=== PATIENT | female | born 1985 | race Caucasian/White ===

== ENCOUNTER 2017-10-10 21:16 | Emergency (ER) | payer BC ==
[2017-10-10 22:19] VITALS: BMI 32.2
--- NOTE | 2017-10-10 23:15 | US ---
EXAM: US Biophysical Profile Without Non-Stress Testing CLINICAL HISTORY: 32 years old, female; Signs and symptoms; Other: Decrease move; ; Additional info: Decreased fm TECHNIQUE: Real-time ultrasound of the maternal pelvis for biophysical profile evaluation with image documentation. COMPARISON: No relevant prior studies available. FINDINGS: breathing movements: Present. Score 2/2. Gross body movements: Present. Score 2/2. tone: Present. Score 2/2. Qualitative amniotic fluid volume: Amniotic fluid index 14.2. Score 2/2. presentation is breech. Heart rate 144 beats per minute. IMPRESSION: Normal biophysical profile ultrasound. Score 8/8. Breech presentation.
[2017-10-11 03:33] VITALS: BP 113/62; PULSE 73
--- NOTE | 2017-10-11 18:10 | OBHP ---
Datetime: 10/10/2017 22:23 IP Adm Impression: , intrauterine IP Admit Plan: Observation/Evaluation Admit Comment, IP Provider: This is 32 y/o F, , IUP@ 27.4, comes to the OB ED c/o decreased FM s ernesto yesterday. Last movement 15 mins ago. Denies any CTX, BV, LOF ROS unremarkabal PNC: Dr. Crane PMH: Denies PSH: Gallbladder removed 7 yrs ago Allg: Benzoperoxide, retinol a, Meds: PPI, PNV OB: A/P: 32 y/o F, , IUP@ 27.4, comes to the OB ED c/o decreased FM since yesterday. - Observation - NST - BPP - Serial reevaluation Case discussed with Dr. Hill --- JPATEL, PGY-1 Addendum: I saw and examined patient. Patient presented complaining of decreased movement. While in th e ED, patient reports good movement. heart tracing with good variability. Physical profil e 8 out of 8. Patient discharged home with labor precautions. Both maternal well-being and fe bebe well-being reassuring at this time. Extremities - PN: Normal Abdomen - PN: Normal Back - PN: Normal Lungs - PN: Normal Heart - PN: Normal Thyroid - PN: Normal Neurologic - PN: Normal HEENT - PN: Normal General - PN: Normal FHR - Baseline A Provider: 130 EGA AdmitDate IP: 27.4 Vital Signs Provider: Reviewed; Within Normal Limits IP Chief Complaint: evaluation NICHD Variability Prov Fetus A: Moderate 6-25bpm FHR Category Provider Fetus A: Category I NICHD Decel Fetus A IP Provider: None
== END 2017-10-10 23:22 | disposition home or self-care (01) ==
LOC: H.EROB2 21:16
DX: O36.8120 Decreased fetal movements, second trimester, not applicable or unspecified (principal); Z3A.27 27 weeks gestation of pregnancy

== ENCOUNTER 2017-12-08 20:51 | Emergency (ER) | payer BC ==
[2017-12-08 21:32] VITALS: BMI 34.9
[2017-12-08] MEDS ORDERED: Betamethasone Soluspan 30 mg/5mL Inj Susp IM ONE (21:35)
[2017-12-09 05:31] VITALS: BP 127/77; PULSE 74; O2SAT 100
--- NOTE | 2017-12-09 06:51 | OBDCSUM ---
Datetime: 12/08/2017 22:27 Discharged to, Provider: Home Follow up at, Provider: dr garcia Disch Instr Activity: Normal activity Disch Instr Diet: Regular Discharge Instructions, Provider: Routine instructions given Discharge Time: 12/08/2017 22:25 Follow up in weeks, Provider: saturday12/11/17 as scheduled Disch Referrals: None Contraception discussed, Prov: Yes Disch Activity Restrictions: Nothing in vagina - [place], tampons, douche Discharge Diagnosis Prov Other: cholestasis of
--- NOTE | 2017-12-09 06:52 | OBHP ---
Datetime: 12/08/2017 21:37 IP Adm Impression: , intrauterine ; No Active Labor IP Admit Plan: Observation/Evaluation; Discharge home Admit Comment, IP Provider: 32 y/o F , IUP 36+ wks sent by primary OB doctor for celestone firs t shot. No complaints at this time, movements present. Denies any CTX, BV, LOF. PNC: Dr. Crane PMH: Denies PSH: Gallbladder removed 7 yrs ago Allg: Benzoy peroxide, retinol ac. Meds: PPI, PNV OB: O: VSS, see PE tab. A/P: 32 yo F IUP 36+ weeks, comes for first Celestone dose. - Observation - Betamethasone 12mg IM once - NST - advise return tomorrow for second dose. - PTL precautions. Case discussed with Dr Giuspepe Killian PGY [address] Chin: I have evaluated the patient independently and I agree with the above Pelvic Type - PN: Adequate Extremities - PN: Normal Abdomen - PN: Normal Back - PN: Normal Breast - PN: Not Done Lungs - PN: Normal Heart - PN: Normal Thyroid - PN: Normal Neurologic - PN: Normal HEENT - PN: Normal General - PN: Normal FHR - Baseline A Provider: 155 Membranes, Provider: Intact EGA AdmitDate IP: 36.0 Vital Signs Provider: Reviewed; Within Normal Limits IP Chief Complaint: Other NICHD Variability Prov Fetus A: Moderate 6-25bpm NICHD Accel Fetus A IP Provider: 15X15 FHR Category Provider Fetus A: Category I NICHD Decel Fetus A IP Provider: None Genitourinary Exam: Not Done DTRs - PN: Normal
== END 2017-12-08 22:30 | disposition home or self-care (01) ==
LOC: H.EROB2 20:51
DX: O26.613 Liver and biliary tract disorders in pregnancy, third trimester (principal); Z23 Encounter for immunization; Z3A.36 36 weeks gestation of pregnancy
CPT/HCPCS: 96372; 99281; J0702

== ENCOUNTER 2017-12-09 18:04 | Emergency (ER) | payer BC ==
[2017-12-08 21:32] VITALS: BMI 34.9
[2017-12-09] MEDS ORDERED: Betamethasone Soluspan 30 mg/5mL Inj Susp IM ONE (22:20)
--- NOTE | 2017-12-09 22:21 | OBDCSUM ---
Datetime: 12/09/2017 22:05 Discharged to, Provider: Home Follow up at, Provider: Disch Instr Activity: Normal activity Disch Instr Diet: Regular Discharge Diet restrict Prov: DRINK PLENTY OF WATER Discharge Time: 12/09/2017 22:06 Follow up in weeks, Provider: 02/10/2018 Disch Referrals: None Disch Activity Restrictions: No lifting Discharge Diagnosis Prov Other: Decreased movement/ steroid administration for ICP
[2017-12-10 05:40] VITALS: BP 121/86; PULSE 86; TEMP 98.5
--- NOTE | 2017-12-10 08:53 | US ---
PROCEDURE: Biophysical profile HISTORY: decreased movement COMPARISON: 10/10/2017. TECHNIQUE: Standard protocol for this study/examination. FINDINGS: FINDINGS: Biophysical profile score 8/8 Based on the followin. breathing movements: 2/2 2. Gross body movement: 2/2 3. tone: 2/2 4. Qualitative amniotic fluid index: 2/2 Calculated cardiac rate 143 beats per minute. Amniotic fluid index 15.6 cm. Cephalic presentation. Closed cervix 5.2 cm. IMPRESSION: Biophysical profile score 8/8. Concordant results (preliminary interpretation) provided by [facility]. Procedure Completed: 20:10 Preliminary ([facility]) Report: Dictated and Authenticated: 21:23 Final Interpretation: 08:51 December 10, 2017. She
== END 2017-12-09 22:10 | disposition home or self-care (01) ==
LOC: H.EROB2 18:04
DX: O26.613 Liver and biliary tract disorders in pregnancy, third trimester (principal); Z3A.36 36 weeks gestation of pregnancy; Z23 Encounter for immunization; O36.8130 Decreased fetal movements, third trimester, not applicable or unspecified
CPT/HCPCS: 76818; 99284; J0702

== ENCOUNTER 2017-12-15 11:18 | Inpatient (IN) | payer BC ==
[2017-12-15] MEDS ORDERED: Lactated Ringer's 1,000 ML IV SCH (20:45)
[2017-12-15 21:28] VITALS: TEMP 98.6
[2017-12-15 21:35] LABS: BASO # 0.2 K/uL (0.0-0.2); BASO % 1.3 % (0.0-2.0); EOS # 0.3 K/uL (0.0-0.7); EOS % 2.5 % (0.0-4.0); LYMPH # 1.7 K/uL (1.0-4.3); LYMPH % 12.8 % (20.0-40.0); MEAN CELL VOLUME 87.3 fl (81.0-99.0); MEAN CORPUSCULAR HEMOGLOBIN 29.7 pg (27.0-31.0); MEAN PLATELET VOLUME 8.7 fl (7.2-11.7); MONO # 0.6 K/uL (0.0-0.8); MONO % 4.1 % (0.0-10.0); NEUT # 10.8 K/uL (1.8-7.0); NEUT % 79.3 % (50.0-75.0); RBC 4.06 Mil/uL (3.80-5.20); WHITE BLOOD COUNT 13.6 K/uL (4.8-10.8)
--- NOTE | 2017-12-15 22:35 | OBADHP ---
Datetime: 12/15/2017 20:46 Admit Comment, IP Provider: This is 32 yo F, , IUP@ 37.0 weeks, comes for scheduled IOL. Denies any CTX, BV, LOF, good movements. ROS as per HPI PNC: Dr. Crane PMH: Denies PSH: Gallbladder removed 7 yrs ago Allg: Benzoperoxide, retinol a, Meds: PPI, PNV OB: A/P: 32 yo F, , IUP@ 37.0 wks admitted for scheduled IOL. Cholestasis of . - Admit to unit. - Initiate IOL protocol - Cervidil vag. - /maternal monitoring - Monitor labor progression. Case discussed with Dr Chin. --- YBecerra PGY-[address] Chin: I have evaluated the patient independently and I agree with the above. The patient was closed/long/thick on exam, FHR = 140 mod sylvester, +accels, no decel, TOCO = none. Cervidil wa s placed. Pt declined pain medication at this time. CEFM and TOCO. F/U as needed Pelvic Type - PN: Adequate Extremities - PN: Normal Abdomen - PN: Normal Lungs - PN: Normal Heart - PN: Normal Neurologic - PN: Normal HEENT - PN: Normal General - PN: Normal FHR - Baseline A Provider: 150 Vital Signs Provider: Reviewed; Within Normal Limits IP Chief Complaint: Scheduled induction of labor NICHD Variability Prov Fetus A: Moderate 6-25bpm NICHD Accel Fetus A IP Provider: 15X15 FHR Category Provider Fetus A: Category I NICHD Decel Fetus A IP Provider: None EGA AdmitDate IP: 37.0 IP Adm Impression: Term, intrauterine ; No Active Labor; Intact Membranes IP Admit Plan: Admit to unit; Initiate labor induction protocol Datetime: 12/09/2017 19:06 IP Chief Complaint Other: Steroid administration for ICP Back - PN: Normal Contraction Comments Provider: Irritability Datetime: 12/08/2017 21:37 Breast - PN: Not Done Thyroid - PN: Normal Membranes, Provider: Intact Genitourinary Exam: Not Done DTRs - PN: Normal
[2017-12-16] MEDS: Lactated Ringer's 1,000 ML IV SCH (08:49)
--- NOTE | 2017-12-16 11:11 | OBPN ---
Datetime: 12/16/2017 11:07 IP Progress Impression: Normal progression of labor IP Informed Consent Obtain: Vaginal Delivery IP Procedures: Sterile Vag Exam IP Progress Plan: Continue present management FHR - Baseline A Provider: 155 IP Progress Note Comment: Pt comfortable overnight. VE=closed/50/-3, cervidil removed TOCO = Irritability A/P 1. Patient evaluated, cervidil removed, Pt closed. COntinue Misoprostol for induction 2. CEFM and TOCO 3. Nexium for acid reflux and continue Zoloft QHS 4. Re-evaluate as needed. Pt declined pain medication at this time Vital Signs Provider: Reviewed; Within Normal Limits NICHD Accel Fetus A IP Provider: 15X15 NICHD Variability Prov Fetus A: Moderate 6-25bpm Dilatation, Provider: closed Effacement, Provider: 50 Station, Provider: -3 Datetime: 12/15/2017 20:46 FHR Category Provider Fetus A: Category I NICHD Decel Fetus A IP Provider: None Datetime: 12/09/2017 19:06 Contraction Comments Provider: Irritability Datetime: 12/08/2017 21:37 Membranes, Provider: Intact
--- NOTE | 2017-12-16 22:14 | OBPN ---
Datetime: 12/16/2017 22:11 IP Progress Impression: Reassuring heart rate IP Procedures: Sterile Vag Exam IP Progress Plan: Continue present management; Induction Contraction Comments Provider: occasional FHR - Baseline A Provider: 130s-140s IP Progress Note Comment: FHT category I. Plan to continue cervical ripening and IOL. Discussed pl an with patient and all patient questions answered. NICHD Accel Fetus A IP Provider: 15X15 FHR Category Provider Fetus A: Category I NICHD Variability Prov Fetus A: Moderate 6-25bpm Dilatation, Provider: 1 Effacement, Provider: 50 Station, Provider: -3 NICHD Decel Fetus A IP Provider: None
[2017-12-17] MEDS ORDERED: Nalbuphine 20 mg/ml Inj (1 ml) IVP PRN (02:15)
[2017-12-17] MEDS ORDERED: Pantoprazole 40 mg EC Tab PO SCH (09:00)
--- NOTE | 2017-12-17 09:05 | OBPN ---
Datetime: 12/17/2017 09:02 IP Progress Impression: Reassuring heart rate IP Procedures: Sterile Vag Exam IP Progress Plan: Continue present management; Augmentation Membranes, Provider: Intact Contraction Comments Provider: q8-9min FHR - Baseline A Provider: 140s-150s IP Progress Note Comment: Category I tracing. Plan to start pitocin augmentation. Discussed plan w ith patient and all patient questions answered. Vital Signs Provider: Reviewed; Within Normal Limits NICHD Accel Fetus A IP Provider: 15X15 FHR Category Provider Fetus A: Category I NICHD Variability Prov Fetus A: Moderate 6-25bpm Dilatation, Provider: 3-4 Effacement, Provider: 100 Station, Provider: -1 NICHD Decel Fetus A IP Provider: None
[2017-12-17] MEDS ORDERED: Oxytocin 30 units/LR 500ML 30 U/500 ML BAG IV ONE (09:07)
--- NOTE | 2017-12-17 11:23 | OBPN ---
Datetime: 12/17/2017 11:18 IP Progress Impression: Normal progression of labor; Reassuring heart rate IP Procedures: Sterile Vag Exam IP Progress Plan: Continue present management; Anesthesia consult Membranes, Provider: Ruptured Amniotic Fluid Color, Provider: Clear Contraction Comments Provider: q4-5min FHR - Baseline A Provider: 130s-140s IP Progress Note Comment: Pt s/p SROM. Requesting Epidural. Cat I FHT. Contact anesthesia. Cont current management. Vital Signs Provider: Reviewed; Within Normal Limits NICHD Accel Fetus A IP Provider: 15X15 FHR Category Provider Fetus A: Category I NICHD Variability Prov Fetus A: Moderate 6-25bpm Dilatation, Provider: 7-8 Effacement, Provider: 100 Station, Provider: 0 NICHD Decel Fetus A IP Provider: None
[2017-12-17] MEDS ORDERED: Fentanyl/Bupivacaine HCl 250 ML EPI ONE (11:55)
[2017-12-17] MEDS: Lactated Ringer's 1,000 ML IV SCH (12:28)
--- NOTE | 2017-12-17 13:06 | OBPN ---
Datetime: 12/17/2017 13:02 IP Progress Impression: Normal progression of labor; Reassuring heart rate IP Procedures: Sterile Vag Exam IP Progress Plan: Continue present management Contraction Comments Provider: q4min FHR - Baseline A Provider: 150s IP Progress Note Comment: Pt comfortable s/p epidural. FHT cat I. Labor progressing well, anticipa te . Vital Signs Provider: Reviewed; Within Normal Limits NICHD Accel Fetus A IP Provider: 15X15 FHR Category Provider Fetus A: Category I NICHD Variability Prov Fetus A: Moderate 6-25bpm Dilatation, Provider: 10 Effacement, Provider: 100 Station, Provider: 0 NICHD Decel Fetus A IP Provider: None
[2017-12-17] MEDS ORDERED: Propofol 10 mg/ml Inj (20 ML) ONE (16:42)
[2017-12-17] MEDS ORDERED: Midazolam 2 MG/2 ML VIAL ONE (16:42)
[2017-12-17] MEDS ORDERED: Succinylcholine 200 mg/10 ml Inj IV ONE (16:43)
[2017-12-17] MEDS ORDERED: Benzocaine/Menthol SPRAY TOP PRN ×2 (17:27→19:29)
[2017-12-17] MEDS ORDERED: Oxycodone/Acetaminophen 5/325 mg Tab PO PRN ×2 (17:27→19:29)
[2017-12-17 19:51] LABS: HEMOGLOBIN 11.4 g/dL (12.0-16.0); MEAN CELL VOLUME 86.9 fl (81.0-99.0); MEAN CORPUSCULAR HEMOGLOBIN 29.7 pg (27.0-31.0); MEAN CORPUSCULAR HGB CONC 34.2 g/dL (33.0-37.0); RBC 3.84 Mil/uL (3.80-5.20); RED CELL DISTRIBUTION WIDTH 13.2 % (11.5-14.5)
--- NOTE | 2017-12-17 20:14 | OBDS ---
DELIVERY PERSONNEL Delivery Doctor: Eliana Hill MD Drug Enforcement Agent: Sherley Baltazar RN Anesthesiologist: Julieta Resident: Maritza MATERNAL INFORMATION Delivery Anesthesia: Epidural; General Estimated Blood Loss (ml): 800 Placenta Cultured: Yes Other Maternal Complications: Retained Placenta RN Comments: Pt taken to OR at 1640 for manual removal of retained placenta. Provider Comments: Normal spontaneous vaginal delivery. Patient delivered viable infant with Apgars of 9 and 9 at one and 5 minutes respectively. Umbilical cord became unattached from placenta. Unable to deliver placenta in delivery room, decision made to transfer patient to operating room for manual removal of placenta under anesthesia. Operating room, placenta removed manually intact while under general anesthesia. Laceration repair ed, as above. After placental removal, uterus found to be hemostatic and appropriately firm. Total blood loss 800 mL Rossi catheter placed intraoperatively LABOR SUMMARY EDC: 01/05/2018 00:00 No. Babies in Womb: 1 Attempted: No Labor Anesthesia: Epidural LABOR INFORMATION Reason for Induction: Other Onset of Labor: 12/17/2017 11:01 Complete Dilatation: 12/17/2017 13:00 Cervical Ripening Agents: Cervidil; Cytotec @ Oxytocin: Augmentation (Annotations: Data stored by CPN on behalf of user) Group B Beta Strep: Not Done Antibiotics # of Doses: 0 Antibiotics Time of Last Dose: 0 Steroids Given: None Reason Steroids Not Administered: Not Applicable MEMBRANES Membranes Rupture Method: Spontaneous Rupture of Membranes: 12/17/2017 11:02 Length of Rupture (hrs): 5.18 Amniotic Fluid Color: Clear Amniotic Fluid Amount: Moderate Amniotic Fluid Odor: Normal STAGES OF LABOR Stage 1 hrs: 1 Stage 1 min: 59 Stage 2 hrs: 3 Stage 2 min: 13 Stage 3 hrs: 0 Stage 3 min: 45 Total Time in Labor hrs: 5 Total Time in Labor min: 57 VAGINAL DELIVERY Episiotomy: None Laceration Extension: Second Degree Laceration Type: Perineal Laceration Repair: Yes Laceration Repair Note: Second-degree midline perineal laceration. Area infiltrated with 1% lidocain e. Laceration repaired with 2. 0 repeat without complication. Initial Vag Sponge Count: 10 Final Vag Sponge Count: 10 Initial Vag Sharps Count: 3 Final Vag Sharps Count: 3 Sponge Count Correct: Yes Sharps Count Correct: Yes BABY A INFORMATION Infant Delivery Date/Time: 12/17/2017 16:13 Method of Delivery: Vaginal Born in Route : No : N/A Forceps: N/A Vacuum Extraction: N/A Shoulder Dystocia : No SHOULDER DYSTOCIA BABY A Infant Delivery Date/Time: 12/17/2017 16:13 PRESENTATION/POSITION BABY A Presentation: Cephalic Cephalic Presentation: Vertex Breech Presentation: N/A PLACENTA INFORMATION BABY A Placenta Delivery Time : 12/17/2017 16:58 Placenta Method of Delivery: Manual Removal Placenta Status: Retained SCORES BABY A Heart Rate 1 min: >100 bpm Resp Effort 1 min: Slow, Irregular Reflex Irritability 1 min: Cough or Sneeze or Pulls Away Muscle Tone 1 min: Active Motion Color 1 min: Body Point [place], Extremities Blue SCORE 1 MIN: 8 Heart Rate 5 min: >100 bpm Resp Effort 5 min: Good Cry Reflex Irritability 5 min: Cough or Sneeze or Pulls Away Muscle Tone 5 min: Active Motion Color 5 min: Body [place], Extremities Blue SCORE 5 MIN: 9 INFORMATION BABY A Gestational Age at Delivery: 37.0 Gestational Status: Term Infant Outcome : Liveborn Infant Condition : Stable Sex: Male IDENTIFICATION/MEDS BABY A ID Band Number: [id number] WEIGHT/LENGTH BABY A Infant Birthweight (gms): 2760 Weight (lb): 6 Weight (oz): 1 CORD INFORMATION BABY A No. Cord Vessels: 3 Nuchal Cord : N/A Cord Blood Taken: No Suction: Mouth; Nose
[2017-12-18] MEDS ORDERED: Multivitamin With Minerals Tab PO SCH (09:00)
[2017-12-18] MEDS: Pantoprazole 40 mg EC Tab PO SCH (09:39)
[2017-12-18] MEDS: Multivitamin With Minerals Tab PO SCH (09:39)
[2017-12-19] MEDS: Pantoprazole 40 mg EC Tab PO SCH (09:33)
[2017-12-19] MEDS: Multivitamin With Minerals Tab PO SCH (09:33)
[2017-12-19 23:04] VITALS: BP 104/64; PULSE 65; RESP 20; O2SAT 99
== END 2017-12-19 15:40 | disposition home or self-care (01) | DRG 767 ==
LOC: H.L&D 20:40 → H.OB/GYN 12-17 21:39
PROVIDERS: ADMIT Obstetrics & Gynecology; ATTEND Obstetrics & Gynecology
PROC: 4A1HXCZ Monitoring of Products of Conception, Cardiac Rate, External Approach (ICD-10-PCS; 2017-12-15)
PROC: 10E0XZZ Delivery of Products of Conception, External Approach (ICD-10-PCS; principal; 2017-12-17)
PROC: 10D17Z9 Manual Extraction of Products of Conception, Retained, Via Natural or Artificial Opening (ICD-10-PCS; 2017-12-17)
PROC: 0KQM0ZZ Repair Perineum Muscle, Open Approach (ICD-10-PCS; 2017-12-17)
PROC: 3E0P7VZ Introduction of Hormone into Female Reproductive, Via Natural or Artificial Opening (ICD-10-PCS; 2017-12-17)
DX: O73.1 Retained portions of placenta and membranes, without hemorrhage (principal); O70.1 Second degree perineal laceration during delivery; Z37.0 Single live birth; Z3A.37 37 weeks gestation of pregnancy